=== PATIENT | female | born 1935 | race Caucasian/White ===

== ENCOUNTER 2021-08-10 18:29 | Emergency (ER) | payer MEDICARE, OTHER ==
[~2021-08-10] VITALS: Ht 165.1 cm; Wt 66.7 kg
[2021-08-10 19:41] LABS: BASOPHILS ABSOLUTE AUTO 0.07 K/mm3 (0.00-0.23); BASOPHILS PERCENT AUTO 1 % (0-2); EOSINOPHILS ABSOLUTE AUTO 0.29 K/mm3 (0.00-0.68); EOSINOPHILS PERCENT AUTO 4 % (0-6); Hematocrit 26.5 % (33.0-51.0); Hemoglobin 8.8 g/dL (11.5-16.0); IMMATURE GRAN ABSOLUTE AUTO 0.02 K/mm3 (0.00-0.10); IMMATURE GRAN PERCENT AUTO 0 % (0-1); LYMPHOCYTES ABSOLUTE AUTO 1.44 K/mm3 (0.84-5.20); LYMPHOCYTES PERCENT AUTO 22 % (21-46); MONOCYTES ABSOLUTE AUTO 0.47 K/mm3 (0.16-1.47); MONOCYTES PERCENT AUTO 7 % (4-13); Mean Corpuscular HGB Conc 33.2 g/dL (31.5-36.5); Mean Corpuscular Volume 96 fL (80-100); Mean Platelet Volume 9.4 fL (9.1-12.4); NEUTROPHILS ABSOLUTE AUTO 4.39 K/mm3 (1.96-9.15); NEUTROPHILS PERCENT AUTO 66 % (41-73); Platelet Count 185 K/mm3 (150-400); RDW Coefficient Variation 13.2 % (11.7-14.2); RDW Standard Deviation 46.4 fL (35.1-46.3); Red Blood Cell Count 2.75 M/mm3 (3.80-5.20); White Blood Cell Count 6.68 K/mm3 (4.00-11.30)
[2021-08-10 20:01] LABS: Albumin, Blood 3.2 g/dL (3.4-5.0); Albumin/Globulin Ratio 0.9 (0.8-1.8); Bilirubin, Total 0.2 mg/dL (0.1-1.0); Bun/Creatinine Ratio 54.8 (12.0-20.0); Calcium, Blood 8.6 mg/dL (8.5-10.1); Creatinine, Blood 1.88 mg/dL (0.40-1.00); Globulin, Blood 3.5 g/dL (2.2-4.0); Potassium, Blood 5.2 mmol/L (3.5-5.5); Total Protein, Blood 6.7 g/dL (6.4-8.2)
[2021-08-10 23:47] LABS: Bun/Creatinine Ratio 60.1 (12.0-20.0); Calcium, Blood 8.1 mg/dL (8.5-10.1); Creatinine, Blood 1.63 mg/dL (0.40-1.00); Potassium, Blood 4.7 mmol/L (3.5-5.5)
== END 2021-08-11 00:18 | disposition home or self-care (01) ==
LOC: ER 18:29
PROVIDERS: Student in an Organized Health Care Education/Training Program
DX: N17.9 Acute kidney failure, unspecified (principal); E86.0 Dehydration
CPT/HCPCS: 36415; 80048; 80053; 85025; 99283; J7030

== ENCOUNTER 2022-01-08 08:40 | Day surgery (SDC) | payer MEDICARE, OTHER ==
[~2022-01-08] VITALS: Ht 165.1 cm; Wt 66.4 kg
[~2022-01-08 08:40] MED LIST: Acetaminophen650 M1 PO; COQ-10100 MG PO; COQ1050 MG PO; FURO80 PO; IBUP600 PO; LEVOTHYROXINE75 MC8 PO; LISI20 PO; Preservision S1 EACH PO; VITAMIN D31000 UNI1 PO
--- NOTE | 2022-01-08 19:13 | NUR ---
SHIFT SUMMARY PATIENT NEW ADMIT TO UNIT FROM PACU POST OP DAY [address] SNEED. ALERT AND ORIENTED. TOLERATING REGULAR DIET AND LIQUIDS. SPINAL WEARING OFF, ABLE TO WIGGLE ANKLES AND TOES. REPORTS FULL SENSATION TO BILAT LEGS. RIGHT HIP INCISION WITH PRINEO DRESSING C/D/I. NOT OUT OF BED AT THIS TIME. NO VOID AT THIS TIME. MEDICATED FOR PAIN WITH SCHEDULED MEDS, NO NARCOTICS AT THIS TIME. REPORT GIVEN TO PRODUCTION TOOL ENGINEER RN.
--- NOTE | 2022-01-09 04:44 | NUR ---
SHIFT SUMMARY: PT WAS ABLE TO REST COMFORTABLY T/O THE NIGHT. PAIN WAS WELL MANAGED PER EMAR ORDERS AND UNINTERRUPTED REST. PT IS A&O AND VERY PLEASANT. TOLERATING PO FLUIDS AND FOOD WELL AT THIS TIME. VOIDING AND AMBULATING WELL WITH FWW AND GAIT BELT. PRINEO DRESSING X1 REMAINS IN PLACE ON R HIP. CALL LIGHT WITHIN REACH.
[2022-01-09 05:49] LABS: BASOPHILS ABSOLUTE AUTO 0.02 K/mm3 (0.00-0.23); BASOPHILS PERCENT AUTO 0 % (0-2); EOSINOPHILS PERCENT AUTO 0 % (0-6); Hematocrit 25.3 % (33.0-51.0); Hemoglobin 8.5 g/dL (11.5-16.0); IMMATURE GRAN ABSOLUTE AUTO 0.08 K/mm3 (0.00-0.10); IMMATURE GRAN PERCENT AUTO 1 % (0-1); LYMPHOCYTES ABSOLUTE AUTO 0.87 K/mm3 (0.84-5.20); LYMPHOCYTES PERCENT AUTO 6 % (21-46); MONOCYTES ABSOLUTE AUTO 0.58 K/mm3 (0.16-1.47); MONOCYTES PERCENT AUTO 4 % (4-13); Mean Corpuscular HGB 30.9 pg (26.0-34.0); Mean Corpuscular HGB Conc 33.6 g/dL (31.5-36.5); Mean Corpuscular Volume 92 fL (80-100); Mean Platelet Volume 9.3 fL (9.1-12.4); NEUTROPHILS ABSOLUTE AUTO 12.83 K/mm3 (1.96-9.15); NEUTROPHILS PERCENT AUTO 89 % (41-73); Platelet Count 191 K/mm3 (150-400); RDW Coefficient Variation 13.2 % (11.7-14.2); RDW Standard Deviation 44.7 fL (35.1-46.3); Red Blood Cell Count 2.75 M/mm3 (3.80-5.20); White Blood Cell Count 14.38 K/mm3 (4.00-11.30)
[2022-01-09 05:57] LABS: Bun/Creatinine Ratio 30.4 (12.0-20.0); Calcium, Blood 8.7 mg/dL (8.5-10.1); Creatinine, Blood 1.58 mg/dL (0.40-1.00); Magnesium, Blood 2.3 mg/dL (1.6-2.4)
--- NOTE | 2022-01-09 08:50 | NUR ---
A&OX4, DENIES ANY PAIN, AMBULATED DOWN THE HALLS WITH PT, TOLERATED WELL, CLEARED BY PT, PLAN DC HOME THIS AM.
[2022-01-09] MEDS ORDERED: Aspir 8181 MG PO (10:10)
[2022-01-09] MEDS ORDERED: OXYC5 PO (10:11)
--- NOTE | 2022-01-09 10:47 | NUR ---
PT DC'D HOME, DC INSTRUCTIONS GIVEN, VERBALIZED UNDERSTANDING, IV DC'D, CATH INTACT, PT STATES SHE ALREADY RX FOR OXYCODONE AT HOME.
== END 2022-01-09 10:46 | disposition home or self-care (01) ==
LOC: ORSCMMR 08:40 → ORD 10:45 → ORSCMMR 10:45 → SURS 14:17 → ORSCMMR 01-09 10:46
PROVIDERS: Orthopaedic Surgery
PROC: 0SR90JA Replacement of Right Hip Joint with Synthetic Substitute, Uncemented, Open Approach (ICD-10-PCS; principal; 2022-01-08 10:45)
DX: M16.11 Unilateral primary osteoarthritis, right hip (principal); E03.9 Hypothyroidism, unspecified; I12.9 Hypertensive chronic kidney disease with stage 1 through stage 4 chronic kidney disease, or unspecified chronic kidney disease; N18.30 Chronic kidney disease, stage 3 unspecified; Z79.899 Other long term (current) drug therapy
CPT/HCPCS: 36415; 72170; 80048; 83735; 85025; 97110; 97116; 97161; 97530; A9270; C1776; J0171; J0690; J0735; J1100; J1170; J1885; J2250; J2405; J2704; J2795; J3010; J7120

== ENCOUNTER 2022-01-10 10:07 | Emergency (ER) | payer MEDICARE, OTHER ==
[~2022-01-10] VITALS: Ht 162.6 cm; Wt 67.1 kg
[~2022-01-10 10:07] MED LIST changes: +Aspir 8181 MG PO; +OXYC5 PO
[2022-01-10 11:45] LABS: BASOPHILS ABSOLUTE AUTO 0.03 K/mm3 (0.00-0.23); BASOPHILS PERCENT AUTO 0 % (0-2); EOSINOPHILS ABSOLUTE AUTO 0.05 K/mm3 (0.00-0.68); EOSINOPHILS PERCENT AUTO 0 % (0-6); IMMATURE GRAN ABSOLUTE AUTO 0.07 K/mm3 (0.00-0.10); IMMATURE GRAN PERCENT AUTO 1 % (0-1); LYMPHOCYTES ABSOLUTE AUTO 1.02 K/mm3 (0.84-5.20); LYMPHOCYTES PERCENT AUTO 8 % (21-46); MONOCYTES ABSOLUTE AUTO 0.82 K/mm3 (0.16-1.47); MONOCYTES PERCENT AUTO 7 % (4-13); Mean Corpuscular HGB 31.4 pg (26.0-34.0); Mean Corpuscular HGB Conc 33.3 g/dL (31.5-36.5); Mean Corpuscular Volume 94 fL (80-100); Mean Platelet Volume 9.1 fL (9.1-12.4); NEUTROPHILS ABSOLUTE AUTO 10.46 K/mm3 (1.96-9.15); NEUTROPHILS PERCENT AUTO 84 % (41-73); Platelet Count 221 K/mm3 (150-400); RDW Coefficient Variation 13.8 % (11.7-14.2); RDW Standard Deviation 47.3 fL (35.1-46.3); Red Blood Cell Count 2.87 M/mm3 (3.80-5.20); White Blood Cell Count 12.45 K/mm3 (4.00-11.30)
[2022-01-10 11:50] LABS: Albumin, Blood 3.2 g/dL (3.4-5.0); Bilirubin, Total 0.3 mg/dL (0.1-1.0); Bun/Creatinine Ratio 33.3 (12.0-20.0); Calcium, Blood 9.1 mg/dL (8.5-10.1); Creatinine, Blood 1.56 mg/dL (0.40-1.00); Globulin, Blood 3.2 g/dL (2.2-4.0); Potassium, Blood 4.8 mmol/L (3.5-5.5); Total Protein, Blood 6.4 g/dL (6.4-8.2)
== END 2022-01-10 13:05 | disposition home or self-care (01) ==
LOC: ER 10:07
PROVIDERS: Student in an Organized Health Care Education/Training Program
DX: I95.9 Hypotension, unspecified (principal); Z91.09 Other allergy status, other than to drugs and biological substances; Z79.899 Other long term (current) drug therapy; E03.9 Hypothyroidism, unspecified; Z79.890 Hormone replacement therapy; Z79.82 Long term (current) use of aspirin; Z96.641 Presence of right artificial hip joint
CPT/HCPCS: 36415; 80053; 85025; 93005; 93010; 99285-25; A9270